=== PATIENT | male | born 1995 | race Two or more races ===

== ENCOUNTER 2023-07-25 09:54 | Emergency (ER) | payer MEDICAID, OTHER ==
[~2023-07-25] VITALS: Ht 177.8 cm; Wt 91.5 kg
[2023-07-25 10:08] VITALS: BP 134/94; PULSE 80; RESP 18; O2SAT 99
== END 2023-07-25 14:52 | disposition left against medical advice (07) ==
LOC: ER 09:54
DX: M54.59 Other low back pain (principal); Z53.21 Procedure and treatment not carried out due to patient leaving prior to being seen by health care provider